=== PATIENT | female | born 1945 | race Caucasian/White ===

== ENCOUNTER → 2016-07-08 | Outpatient (CLI) | payer MEDICARE ==
[~2016-07-08] MED LIST: /AUGM875TA OR; CIPR500T19 OR; GLUC1000 OR; IMMODIUM AD PO; LEVA750T OR; No Historical Meds
--- NOTE | 2016-07-08 12:35 | REP ---
CHEST X-RAY, PA AND LATERAL: 07/08/2016. Comparison: 05/01/2014, 03/07/2011. Clinical history: Anemia, pneumonia. Findings: Two-view show the lungs well inflated. Some underlying interstitial change but no effusion, lateral pleural thickening or apical scarring. No dense consolidation. Some fibrotic changes are noted and some minor patchy fibroatelectatic change lower lung zones without dense consolidation, air bronchograms or mass. No pulmonary nodules. Heart is not enlarged. The aorta is mildly tortuous without aneurysm. Airway intact. There is no mediastinal widening. Bony thorax without focal lesion or compression deformities. No free air under the diaphragm. There are right upper quadrant clips from prior cholecystectomy. Impression: 1. Some underlying changes of COPD and fibrosis with bilateral basilar fibroatelectatic change that could be chronic or acute. No dense consolidation with air bronchograms, effusion or edema. Signed by Bernardino Tate MD 07/08/2016 08:25 P
[2016-07-08 13:24] LABS: MEAN CORPUSCULAR HEMOGLOBIN 29.5 pg (27.0-33.0); MEAN CORPUSCULAR HGB CONC 32.6 g/dl (32.0-36.5); MEAN CORPUSCULAR VOLUME 90.5 fl (80.0-96.0); RED CELL DISTRIBUTION WIDTH 12.9 % (11.5-14.5); WHITE BLOOD COUNT 14.3 K/mm3 (4.0-10.0)
[2016-07-08 14:16] LABS: ALBUMIN/GLOBULIN RATIO 1.25 (1.00-1.93); ALKALINE PHOSPHATASE 120 U/L (45-117); ALT/SGPT 23 U/L (12-78); ANION GAP 8 MEQ/L (8-16); AST/SGOT 14 U/L (15-37); BILIRUBIN,TOTAL 0.3 MG/DL (0.2-1.0); BLOOD UREA NITROGEN 15 MG/DL (7-18); CALCIUM LEVEL 9.7 MG/DL (8.8-10.2); CARBON DIOXIDE LEVEL 31 MEQ/L (21-32); CHLORIDE LEVEL 100 MEQ/L (98-107); CREATININE FOR GFR 0.74 MG/DL (0.55-1.02); GLOMERULAR FILTRATION RATE > 60.0 (>39); GLUCOSE, FASTING 154 MG/DL (83-110); POTASSIUM SERUM 3.9 MEQ/L (3.5-5.1); SODIUM LEVEL 139 MEQ/L (136-145); TOTAL PROTEIN 7.2 GM/DL (6.4-8.2)
== END ==
LOC: M LAB 11:37
PROVIDERS: ATTEND Family Medicine
DX: J18.9 Pneumonia, unspecified organism (principal); D64.9 Anemia, unspecified; J44.9 Chronic obstructive pulmonary disease, unspecified; Z79.899 Other long term (current) drug therapy

== ENCOUNTER → 2016-10-27 | Outpatient (CLI) | payer MEDICARE ==
--- NOTE | 2016-10-27 14:35 | REP ---
REASON: Wheezing. COMPARISON: Multiple, the latest 07/08/2016. There has been no significant change compared to the prior exam. Cardiomediastinal silhouette is unchanged. The heart is not enlarged. There is mild thoracic aorta tortuosity, and there is evidence of mild parenchymal lung fibrotic change, status quo. No acute patchy parenchymal opacities or pleural effusions have developed. There is no change in the osseous structures. IMPRESSION: No significant change from the prior exam. Stable-appearing chronic changes as described above. Signed by Magan Durbin DO 10/27/2016 03:20 P
== END ==
LOC: M RAD 13:03
PROVIDERS: ATTEND Family Medicine
DX: R06.2 Wheezing (principal)

== ENCOUNTER → 2016-12-12 | Outpatient (CLI) | payer MEDICARE ==
[2016-12-12 11:36] LABS: MEAN CORPUSCULAR HEMOGLOBIN 29.3 pg (27.0-33.0); MEAN CORPUSCULAR HGB CONC 32.8 g/dl (32.0-36.5); MEAN CORPUSCULAR VOLUME 89.4 fl (80.0-96.0); WHITE BLOOD COUNT 12.8 K/mm3 (4.0-10.0)
--- NOTE | 2016-12-12 11:37 | REP ---
Clinical: Hypertension . Comparison: 10/27/2016 . Technique: PA and lateral. Findings: The mediastinum and cardiac silhouette are normal. The lung greene demonstrate chronic changes without acute consolidation, effusion, or pneumothorax. The skeletal structures are intact and normal. Impression: 1. No acute cardiopulmonary process. If the patient becomes symptomatic, chest CT should be inserted for further investigation. Signed by Oscar Montenegro MD 12/12/2016 11:28 A
[2016-12-12 12:02] LABS: ALBUMIN 3.7 GM/DL (3.2-5.2); ALBUMIN/GLOBULIN RATIO 1.23 (1.00-1.93); ALKALINE PHOSPHATASE 105 U/L (45-117); ALT/SGPT 23 U/L (12-78); ANION GAP 8 MEQ/L (8-16); AST/SGOT 14 U/L (15-37); BILIRUBIN,TOTAL 0.4 MG/DL (0.2-1.0); BLOOD UREA NITROGEN 17 MG/DL (7-18); CALCIUM LEVEL 9.4 MG/DL (8.8-10.2); CARBON DIOXIDE LEVEL 31 MEQ/L (21-32); CHLORIDE LEVEL 101 MEQ/L (98-107); CHOLESTEROL LEVEL 221 MG/DL (<200); CREATININE FOR GFR 0.65 MG/DL (0.55-1.02); GLOMERULAR FILTRATION RATE > 60.0 (>39); GLUCOSE, FASTING 157 MG/DL (83-110); POTASSIUM SERUM 4.5 MEQ/L (3.5-5.1); SODIUM LEVEL 140 MEQ/L (136-145); TOTAL PROTEIN 6.7 GM/DL (6.4-8.2); TRIGLYCERIDES LEVEL 149 MG/DL (<150)
--- NOTE | 2016-12-12 13:55 | ECGEPIP ---
Stationary ECG Study [facility] Test Date: 2016-12-12 Pat Name: MOOKIE PARRISH Department: Room: - Gender: F Legal Secretary Receptionist: ISIDORO : 1945 Requested By: Oleg Guy Order Number: [id number] Reading MD: Stephan Salazar Measurements Intervals [place] Rate: 86 P: 70 OH: 130 QRS: -18 QRSD: 162 T: 120 QT: 389 QTc: 467 Interpretive Statements SINUS RHYTHM LEFT BUNDLE BRANCH BLOCK as previously noted in tracing done 05-01-14 Electronically Signed On 12-12-2016 13:54:41 EDT by Stephan Salazar
== END ==
LOC: M LAB 10:41
PROVIDERS: ATTEND Family Medicine
DX: J44.9 Chronic obstructive pulmonary disease, unspecified (principal); I10 Essential (primary) hypertension; E11.9 Type 2 diabetes mellitus without complications

== ENCOUNTER → 2018-06-04 | Outpatient (REF) | payer MEDICARE ==
[2018-06-04 21:53] LABS: APPEARANCE, URINE TURBID (CLEAR); BACTERIA, URINE AUTO 3+ (NEGATIVE); BILIRUBIN, URINE AUTO NEGATIVE (NEGATIVE); BLOOD, URINE BLOOD 3+ (NEGATIVE); COLOR, URINE YELLOW (YELLOW); GLUCOSE, URINE (UA) AUTO 3+ mg/dL (NEGATIVE); KETONE, URINE AUTO 1+ mg/dL (NEGATIVE); LEUKOCYTE ESTERASE, URINE AUTO 3+ (NEGATIVE); MUCUS, URINE SMALL (NEGATIVE); NITRITE, URINE AUTO POSITIVE (NEGATIVE); PROTEIN, URINE AUTO 2+ mg/dL (NEGATIVE); RBC, URINE AUTO TNTC /HPF (0-3); SPECIFIC GRAVITY URINE AUTO 1.025 (1.002-1.035); SQUAMOUS EPITHELIAL CELL UR AU 7 /HPF (0-6); UROBILINOGEN, URINE AUTO 0.2 mg/dL (0.0-2.0); WBC, URINE AUTO TNTC /HPF (0-3)
== END ==
LOC: M LAB REF 12:44
PROVIDERS: ATTEND Physician Assistant Medical
DX: N39.0 Urinary tract infection, site not specified (principal)

== ENCOUNTER → 2019-04-06 | Outpatient (REF) | payer MEDICARE | LOC: M LAB REF 12:10 | PROVIDERS: ATTEND Physician Assistant | DX: N39.0 Urinary tract infection, site not specified (principal) ==

== ENCOUNTER 2019-10-06 15:32 | Emergency (ER) | payer MEDICARE ==
[~2019-10-06] VITALS: Ht 167.6 cm; Wt 110.0 kg
[2019-10-06] MEDS ORDERED: METF500T13 PO (15:40)
[2019-10-06] MEDS ORDERED: SILV50CR TOP (15:40)
[2019-10-06] MEDS ORDERED: MINO100C4 PO (15:40)
[2019-10-06] MEDS ORDERED: SULF400T14 (15:40)
[2019-10-06] MEDS ORDERED: AMOX500C PO (15:40)
[2019-10-06] MEDS ORDERED: ASPI-1 PO (15:40)
[2019-10-06] MEDS ORDERED: ISOVUE-370 76% 100ML VIAL As Ordered ONE (17:26)
[2019-10-06 17:28] LABS: BASO # 0.1 10^3/uL (0.0-0.2); EOS # 0.3 10^3/uL (0.0-0.5); HEMOGLOBIN 16.2 g/dl (12.0-15.5); LYMPH # 2.5 10^3/uL (1.5-5.0); LYMPH % 19.2 % (24.0-44.0); MEAN CORPUSCULAR HEMOGLOBIN 28.9 pg (27.0-33.0); MEAN CORPUSCULAR HGB CONC 33.1 g/dl (32.0-36.5); MEAN CORPUSCULAR VOLUME 87.5 fl (80.0-96.0); MONO # 0.9 10^3/uL (0.0-0.8); NEUTROPHILS # 9.3 10^3/uL (1.5-8.5); NEUTROPHILS % 70.3 % (36.0-66.0); PLATELET COUNT, AUTOMATED 239 10^3/uL (150-450); WHITE BLOOD COUNT 13.2 10^3/uL (4.0-10.0)
--- NOTE | 2019-10-06 18:09 | REPVR ---
PROCEDURE INFORMATION: Exam: CT Right Lower Extremity Without Contrast, Ankle Exam date and time: 10/06/2019 5:27 PM Age: 73 years old Clinical indication: Cellulitis; Ankle; Bilateral; Additional info: Bilateral cellulitis with bulla TECHNIQUE: Imaging protocol: CT of the Right lower extremity without contrast was performed. Exam focused on the ankle. Radiation optimization: All CT scans at this facility use at least one of these dose optimization techniques: automated exposure control; mA and/or kV adjustment per patient size (includes targeted exams where dose is matched to clinical indication); or iterative reconstruction. Other contrast: intravenous contrast; COMPARISON: CR Ankle, complete 11/24/2012 8:21 PM FINDINGS: Bones/joints: No acute osseous lesions or fractures. No osteolytic or osteoblastic lesions. No dislocation. Soft tissues: Nynj-vj-qkqprprx nonspecific subcutaneous edema along the calcaneal soft tissues. IMPRESSION: 1. No acute osseous lesions. 2. Aoat-ls-ofluvwqt nonspecific subcutaneous edema along the calcaneal soft tissues. PROCEDURE INFORMATION: Exam: CT Left Lower Extremity Without Contrast, Ankle Exam date and time: 10/06/2019 5:27 PM Age: 73 years old Clinical indication: Cellulitis; Ankle; Bilateral; Additional info: Bilateral cellulitis with bulla TECHNIQUE: Imaging protocol: CT of the Left lower extremity without contrast was performed. Exam focused on the ankle. Radiation optimization: All CT scans at this facility use at least one of these dose optimization techniques: automated exposure control; mA and/or kV adjustment per patient size (includes targeted exams where dose is matched to clinical indication); or iterative reconstruction. Other contrast: intravenous contrast; COMPARISON: CR Ankle, complete 11/24/2012 8:21 PM FINDINGS: Bones/joints: Large dermal based cystic mass along the lateral and posterior aspects of the left ankle, possibly large dermal blister. No acute osseous lesions or fractures. No osteolytic or osteoblastic lesions. No dislocation. Soft tissues: Dqkl-ba-yjxynynh subcutaneous edema along the calcaneal soft tissues. IMPRESSION: 1. Large dermal based cystic mass along the lateral and posterior aspects of the left ankle, possibly large dermal blister. Correlate with physical examination. 2. No acute osseous lesions. 3. Zxwv-yn-vekxbmtb subcutaneous edema along the calcaneal soft tissues. Electronically signed by: Eleno Delgadillo On 10/06/2019 18:08:46 PM
[2019-10-06 18:21] LABS: ERYTHROCYTE SEDIMENTATION RATE 34 mm/hr (0-30)
[2019-10-06] MEDS ORDERED: MAALOX 30 ML SUSP *UDC PO PRN (19:45)
[2019-10-06] MEDS ORDERED: ACETAMINOPHEN TAB 650MG DOSE (2X325MG) PO PRN (19:45)
[2019-10-06] MEDS ORDERED: MOM 30ML SUSPENSION UDC PO PRN (19:45)
[2019-10-06] MEDS ORDERED: DOXY100C37 PO (19:58)
[2019-10-06] MEDS ORDERED: DOXYCYCLINE HYCLATE 100MG TABLET PO ONE (20:00)
[2019-10-06] MEDS ORDERED: NORC1TAB7 PO (20:00)
[2019-10-06] MEDS ORDERED: NORCO 5/325MG TABLET (BULK FOR ED) PO SCH (20:15)
[2019-10-06] MEDS ORDERED: NORCO, ANEXSIA 5/325MG TABLET (HYDROcodone/ACETAMINOPHEN) PO ONE (20:15)
[2019-10-06 20:16] VITALS: BP 112/64
[2019-10-07] MEDS ORDERED: ENOXAPARIN 40MG/0.4ML SYRINGE (J1650 PER 10MG) SC SCH (09:00)
--- NOTE | 2019-10-07 13:23 | ED PDOC ---
Post-Departure Follow-Up ct ankle report faxed to dr nguyễn and stevie rouse for fu Ester Nicole MD Oct 07, 2019 13:23
== END 2019-10-06 20:44 | disposition home or self-care (01) ==
LOC: M ED 15:32 → UNDOADMIN 19:36 → M ED INP 19:36 → M ED 20:44
DX: L13.9 Bullous disorder, unspecified (principal); L03.115 Cellulitis of right lower limb; E11.9 Type 2 diabetes mellitus without complications; R51 Headache; K21.9 Gastro-esophageal reflux disease without esophagitis; Z87.440 Personal history of urinary (tract) infections; Z87.01 Personal history of pneumonia (recurrent); Z79.82 Long term (current) use of aspirin; Z79.84 Long term (current) use of oral hypoglycemic drugs; Z79.899 Other long term (current) drug therapy; Z91.89 Other specified personal risk factors, not elsewhere classified; Z88.8 Allergy status to other drugs, medicaments and biological substances
CPT/HCPCS: 73701; 80047; 83605; 85025; 85652; 86140; 87040; 99283; Q9967

== ENCOUNTER → 2019-10-07 | Outpatient (REF) | payer MEDICARE ==
[~2019-10-07] MED LIST changes: +AMOX500C PO; +ASPI-1 PO; +DOXY100C37 PO; +METF500T13 PO; +MINO100C4 PO; +NORC1TAB7 PO; +SILV50CR TOP; +SULF400T14
== END ==
LOC: M LAB REF 10:56
PROVIDERS: ATTEND Physician Assistant
DX: R21 Rash and other nonspecific skin eruption (principal)

== ENCOUNTER 2019-12-16 14:51 | Inpatient (IN) | payer MEDICARE, OTHER ==
[~2019-12-16] VITALS: Ht 167.6 cm; Wt 109.2 kg
[2019-12-16] MEDS ORDERED: MORPHINE 2 MG/ML 1ML VIAL (J2270) IV PRN (15:30)
[2019-12-16] MEDS ORDERED: ONDANSETRON 4MG/2ML VIAL IV ONE (15:30)
[2019-12-16] MEDS ORDERED: ISOVUE-370 76% 100ML VIAL As Ordered ONE (15:47)
[2019-12-16 15:53] LABS: HEMATOCRIT 49.5 % (36.0-47.0); HEMOGLOBIN 16.7 g/dl (12.0-15.5); MEAN CORPUSCULAR HEMOGLOBIN 29.5 pg (27.0-33.0); MEAN CORPUSCULAR HGB CONC 33.7 g/dl (32.0-36.5); MEAN CORPUSCULAR VOLUME 87.5 fl (80.0-96.0); PLATELET COUNT, AUTOMATED 259 10^3/uL (150-450); RED BLOOD COUNT 5.66 10^6/uL (4.00-5.40); WHITE BLOOD COUNT 23.1 10^3/uL (4.0-10.0)
[2019-12-16 16:17] LABS: ALBUMIN 3.8 GM/DL (3.2-5.2); BILIRUBIN,DIRECT 0.2 MG/DL (0.0-0.2); BILIRUBIN,TOTAL 0.7 MG/DL (0.2-1.0); TOTAL PROTEIN 7.3 GM/DL (6.4-8.2)
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
[2019-12-16] MEDS ORDERED: OMEP10CASR PO (16:25)
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
[2019-12-16] MEDS ORDERED: LOPE2TAB12 PO (18:12)
[2019-12-16] MEDS ORDERED: CENT1TAB PO (18:12)
[2019-12-16] MEDS ORDERED: VITA500T41 PO (18:12)
[2019-12-16] MEDS ORDERED: OMEP1CAP73 PO (18:12)
[2019-12-16] MEDS ORDERED: DOXY-259 PO (18:12)
[2019-12-16] MEDS ORDERED: ONDANSETRON 4MG/2ML VIAL IV PRN (18:15)
[2019-12-16] MEDS ORDERED: KETOROLAC 30 MG/ML 1ML VIAL IV PRN (18:15)
[2019-12-16 21:40] VITALS: BP 138/85
[2019-12-16] MEDS: SENOKOT S TAB PO SCH (21:40)
[2019-12-17 06:00] VITALS: BP 124/75
[2019-12-17 07:02] LABS: BASO # 0.1 10^3/uL (0.0-0.2); BASO % 0.9 % (0.0-1.0); EOS % 0.1 % (0.0-3.0); HEMATOCRIT 44.3 % (36.0-47.0); HEMOGLOBIN 14.8 g/dl (12.0-15.5); LYMPH % 19.9 % (24.0-44.0); MEAN CORPUSCULAR HEMOGLOBIN 29.3 pg (27.0-33.0); MEAN CORPUSCULAR HGB CONC 33.4 g/dl (32.0-36.5); MEAN CORPUSCULAR VOLUME 87.7 fl (80.0-96.0); MONO # 1.1 10^3/uL (0.0-0.8); MONO % 7.4 % (0.0-5.0); NEUTROPHILS # 10.6 10^3/uL (1.5-8.5); NEUTROPHILS % 70.9 % (36.0-66.0); PLATELET COUNT, AUTOMATED 209 10^3/uL (150-450); RED BLOOD COUNT 5.05 10^6/uL (4.00-5.40); WHITE BLOOD COUNT 14.9 10^3/uL (4.0-10.0)
[2019-12-17 07:19] LABS: CALCIUM LEVEL 9.2 MG/DL (8.8-10.2); CREATININE FOR GFR 1.01 MG/DL (0.55-1.30)
[2019-12-17] MEDS: ENOXAPARIN 40MG/0.4ML SYRINGE (J1650 PER 10MG) SC SCH (08:40)
[2019-12-17] MEDS: DOXYCYCLINE HYCLATE 100MG TABLET PO SCH ×2 (08:40→20:20)
[2019-12-17] MEDS: SENOKOT S TAB PO SCH ×2 (08:40→20:20)
[2019-12-17] MEDS: metFORMIN (GLUCOPHAGE) 500 MG TAB PO SCH ×3 (08:41→18:05)
[2019-12-17] MEDS: ACETAMINOPHEN TAB 650MG DOSE (2X325MG) PO PRN ×2 (08:48→13:27)
[2019-12-17] MEDS ORDERED: HYDR-3715 PO (10:26)
[2019-12-17 14:00] VITALS: BP 120/70
[2019-12-17] MEDS: OMEPRAZOLE 20 MG CAP PO SCH (20:20)
[2019-12-17] MEDS: NORCO, ANEXSIA 5/325MG TABLET (HYDROcodone/ACETAMINOPHEN) PO PRN (20:21)
[2019-12-17 20:24] VITALS: BP 149/90
[2019-12-18] VITALS (14 sets, daily range): BP systolic 123–160; BP diastolic 58–80
[2019-12-18] MEDS: NORCO, ANEXSIA 5/325MG TABLET (HYDROcodone/ACETAMINOPHEN) PO PRN (02:22)
[2019-12-18] MEDS: ACETAMINOPHEN TAB 650MG DOSE (2X325MG) PO PRN (06:17)
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
[2019-12-18] MEDS: metFORMIN (GLUCOPHAGE) 500 MG TAB PO SCH ×3 (08:47→17:34)
[2019-12-18] MEDS: DOXYCYCLINE HYCLATE 100MG TABLET PO SCH ×2 (08:47→21:01)
--- NOTE | 2019-12-18 08:47 | REPVR ---
PROCEDURE INFORMATION: Exam: XR Chest, 2 Views Exam date and time: 12/18/2019 7:34 AM Age: 74 years old Clinical indication: Sternal or substernal pain; Additional info: Pneumothorax TECHNIQUE: Imaging protocol: XR of the chest Views: 2 views. COMPARISON: CT Chest with contrast 12/16/2019 4:01 PM FINDINGS: Lungs: Mild atelectasis within the partially collapsed right lung. Pleural space: Moderate right pneumothorax has slightly increased in size. Heart/Mediastinum: Cardiac size is normal and mediastinal contour stable. Bones/joints: Bones are stable. IMPRESSION: Moderate right pneumothorax has slightly increased in size. There is mild atelectasis within the partially collapsed right lung. Electronically signed by: Oscar Frazier On 12/18/2019 08:46:39 AM
[2019-12-18] MEDS: SENOKOT S TAB PO SCH ×2 (08:48→21:00)
[2019-12-18] MEDS: ENOXAPARIN 40MG/0.4ML SYRINGE (J1650 PER 10MG) SC SCH (08:48)
[2019-12-18] MEDS: MOM 30ML SUSPENSION UDC PO SCH (09:00)
[2019-12-18] MEDS ORDERED: HumaLOG INSULIN (NovoLOG) PER UNIT SC SCH ×2 (12:00→21:00)
[2019-12-18] MEDS ORDERED: DEXTROSE 50% 50 ML SYRINGE IV PRN (12:15)
[2019-12-18] MEDS ORDERED: GLUCAGON INJ 1MG VIAL SC PRN (12:15)
[2019-12-18] MEDS ORDERED: GLUCOSE 4GM CHEW TABLET PO PRN (12:15)
[2019-12-18] MEDS ORDERED: flumazeniL 0.5 MG/5 ML VIAL As Ordered ONE (12:59)
[2019-12-18] MEDS ORDERED: MIDAZOLAM INJ 2MG/2ML VIAL (J2250 PER 1MG) As Ordered ONE ×2 (12:59→13:00)
[2019-12-18] MEDS ORDERED: LIDOCAINE 1% MDV 20ML VIAL As Ordered ONE (13:00)
[2019-12-18] MEDS ORDERED: PERCOCET 5MG/325MG TAB PO PRN (14:00)
[2019-12-18] MEDS ORDERED: BISACODYL 10 MG SUPP PR PRN (14:00)
[2019-12-18] MEDS ORDERED: LEVALBUTEROL 1.25 MG/0.5 ML CONCENTRATE NEB NEB PRN (14:00)
[2019-12-18] MEDS ORDERED: KCL 20MEQ IN D5/NS 1000ML 1,000 ML IV SCH (14:15)
--- NOTE | 2019-12-18 14:25 | REPVR ---
PROCEDURE INFORMATION: Exam: XR Chest, 1 View Exam date and time: 12/18/2019 1:49 PM Age: 74 years old Clinical indication: Chest tube insertion TECHNIQUE: Imaging protocol: XR of the chest Views: 1 view. COMPARISON: CR Chest, 2 view PA, Lat 12/18/2019 8:28 AM FINDINGS: Limitations: The patient is rotated. Tubes, catheters and devices: Oxygen tubing and ECG leads/contacts overlie and partially obscure the anatomy. Lungs: Interval placement of a right-sided chest tube with its tip projecting at the right upper lung. Right lung aeration is improved, however moderate right infrahilar and basilar airspace opacities persist. New mild left basilar ill-defined airspace opacities. Pleural space: Significantly improved right pneumothorax. Minimal right pneumothorax persists. No evident left pneumothorax. No evident pleural effusion. Heart/Mediastinum: Heart size is within normal limits. Vasculature: Tortuous thoracic aorta. Bones/joints: No evident acute osseous abnormality. IMPRESSION: 1. Interval placement of a right-sided chest tube with its tip projecting at the right upper lung. Significantly improved right pneumothorax. Minimal right pneumothorax persists. 2. Bilateral lower lung airspace opacities as described, presumably atelectasis. Electronically signed by: Tom Miller On 12/18/2019 14:25:42 PM
[2019-12-18] MEDS: LEVALBUTEROL 1.25 MG/0.5 ML CONCENTRATE NEB NEB SCH ×2 (15:06→19:58)
[2019-12-18] MEDS: KETOROLAC 30 MG/ML 1ML VIAL IV SCH ×2 (15:09→21:00)
[2019-12-18] MEDS ORDERED: LIDOCAINE 1% MDV 20ML VIAL SC ONE (17:00)
[2019-12-18] MEDS ORDERED: MIDAZOLAM INJ 2MG/2ML VIAL (J2250 PER 1MG) IV ONE (17:00)
[2019-12-18] MEDS: OMEPRAZOLE 20 MG CAP PO SCH (21:00)
[2019-12-18] MEDS: DOCUSATE SODIUM 100 MG CAP PO SCH ×2 (21:00→21:01)
[2019-12-19] VITALS (22 sets, daily range): BP systolic 114–136; BP diastolic 56–78; O2SAT 87–97
[2019-12-19] MEDS: LEVALBUTEROL 1.25 MG/0.5 ML CONCENTRATE NEB NEB SCH ×4 (01:37→19:54)
[2019-12-19] MEDS: KETOROLAC 30 MG/ML 1ML VIAL IV SCH ×2 (03:06→09:02)
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
[2019-12-19] MEDS: SENOKOT S TAB PO SCH ×2 (09:00→20:24)
[2019-12-19] MEDS: DOCUSATE SODIUM 100 MG CAP PO SCH ×2 (09:00→20:24)
[2019-12-19] MEDS: MOM 30ML SUSPENSION UDC PO SCH (09:00)
[2019-12-19] MEDS: NORCO, ANEXSIA 5/325MG TABLET (HYDROcodone/ACETAMINOPHEN) PO PRN ×2 (09:01→18:19)
[2019-12-19] MEDS: ENOXAPARIN 40MG/0.4ML SYRINGE (J1650 PER 10MG) SC SCH (09:01)
[2019-12-19] MEDS: metFORMIN (GLUCOPHAGE) 500 MG TAB PO SCH ×3 (09:02→18:18)
[2019-12-19] MEDS: DOXYCYCLINE HYCLATE 100MG TABLET PO SCH ×2 (09:02→20:33)
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
[2019-12-19 12:44] LABS: CALCIUM LEVEL 9.1 MG/DL (8.8-10.2); CREATININE FOR GFR 1.16 MG/DL (0.55-1.30); GLOMERULAR FILTRATION RATE 48.6 (>39); POTASSIUM SERUM 4.3 MEQ/L (3.5-5.1)
--- NOTE | 2019-12-19 17:40 | REPVR ---
PROCEDURE INFORMATION: Exam: XR Chest, 2 Views Exam date and time: 12/19/2019 8:40 AM Age: 74 years old Clinical indication: Condition or disease; Lung condition and disease; Pneumothorax; Additional info: Pneumthx TECHNIQUE: Imaging protocol: XR of the chest Views: 2 views. COMPARISON: CR PORTABLE CHEST X-RAY 12/18/2019 1:52 PM FINDINGS: Lungs: Well inflated lungs consistent with COPD. Chest tube demonstrated in the medial aspect of the right upper lung zone. Pleural space: Blunting of the right costophrenic angle may represent chronic change versus a small pleural effusion. Heart/Mediastinum: Unremarkable. No cardiomegaly. Bones/joints: Unremarkable. Soft tissues: Subcutaneous emphysema in the right lateral chest wall likely postprocedural. IMPRESSION: 1. Well inflated lungs consistent with COPD. 2. Blunting of the right costophrenic angle may represent chronic change versus a small pleural effusion. Electronically signed by: eMrrill Osorio On 12/19/2019 17:40:23 PM
[2019-12-19] MEDS: PERCOCET 5MG/325MG TAB PO PRN (19:34)
[2019-12-19] MEDS: OMEPRAZOLE 20 MG CAP PO SCH (20:33)
[2019-12-19] MEDS ORDERED: MORPHINE 4 MG/ML 1ML VIAL/SYRINGE (J2270) IV ONE (21:00)
[2019-12-20] VITALS (22 sets, daily range): BP systolic 133–147; BP diastolic 61–81; O2SAT 86–96
[2019-12-20] MEDS: LEVALBUTEROL 1.25 MG/0.5 ML CONCENTRATE NEB NEB SCH ×4 (01:20→20:16)
[2019-12-20 06:13] LABS: HEMATOCRIT 40.4 % (36.0-47.0); HEMOGLOBIN 13.4 g/dl (12.0-15.5); MEAN CORPUSCULAR HEMOGLOBIN 29.2 pg (27.0-33.0); MEAN CORPUSCULAR HGB CONC 33.2 g/dl (32.0-36.5); PLATELET COUNT, AUTOMATED 223 10^3/uL (150-450); RED BLOOD COUNT 4.59 10^6/uL (4.00-5.40); WHITE BLOOD COUNT 13.2 10^3/uL (4.0-10.0)
[2019-12-20 06:32] LABS: BLOOD UREA NITROGEN 20 MG/DL (7-18); CARBON DIOXIDE LEVEL 30 MEQ/L (21-32); CHLORIDE LEVEL 99 MEQ/L (98-107); CREATININE FOR GFR 0.89 MG/DL (0.55-1.30); GLOMERULAR FILTRATION RATE > 60.0 (>39); GLUCOSE, FASTING 215 MG/DL (70-100); SODIUM LEVEL 136 MEQ/L (136-145)
[2019-12-20] MEDS: MOM 30ML SUSPENSION UDC PO SCH (09:00)
[2019-12-20] MEDS: SENOKOT S TAB PO SCH ×3 (09:00→21:00)
[2019-12-20] MEDS: DOCUSATE SODIUM 100 MG CAP PO SCH ×3 (09:00→21:00)
[2019-12-20] MEDS: PERCOCET 5MG/325MG TAB PO PRN ×2 (09:52→20:49)
[2019-12-20] MEDS: DOXYCYCLINE HYCLATE 100MG TABLET PO SCH ×2 (09:52→20:48)
[2019-12-20] MEDS: metFORMIN (GLUCOPHAGE) 500 MG TAB PO SCH ×3 (09:53→17:25)
[2019-12-20] MEDS: ENOXAPARIN 40MG/0.4ML SYRINGE (J1650 PER 10MG) SC SCH (09:54)
--- NOTE | 2019-12-20 16:26 | ECGEPIP ---
[facility] Test Date: 2019-12-18 Pat Name: MOOKIE PARRISH Department: Room: [place] [address] Gender: Female [employer] Instructor: SINA : 1945 Requested By: Stephan Cardenas Order Number: [id number] Reading MD: Stephan Salazar Measurements Intervals Rubicon Rate: 86 P: 27 RI: 128 QRS: -26 QRSD: 152 T: 123 QT: 392 QTc: 469 Interpretive Statements SINUS RHYTHM LEFT BUNDLE BRANCH BLOCK Similar to tracing done 12-12-16 Electronically Signed on 12-20-2019 16:26:09 EDT by Stephan Salazar
[2019-12-20] MEDS: OMEPRAZOLE 20 MG CAP PO SCH (20:48)
[2019-12-21] VITALS (21 sets, daily range): BP systolic 128–144; BP diastolic 60–72; O2SAT 88–96
[2019-12-21] MEDS: LEVALBUTEROL 1.25 MG/0.5 ML CONCENTRATE NEB NEB SCH ×4 (01:34→20:05)
[2019-12-21 06:24] LABS: HEMATOCRIT 40.2 % (36.0-47.0); HEMOGLOBIN 13.1 g/dl (12.0-15.5); MEAN CORPUSCULAR HEMOGLOBIN 29.1 pg (27.0-33.0); MEAN CORPUSCULAR HGB CONC 32.6 g/dl (32.0-36.5); MEAN CORPUSCULAR VOLUME 89.3 fl (80.0-96.0); PLATELET COUNT, AUTOMATED 212 10^3/uL (150-450)
[2019-12-21 06:39] LABS: BLOOD UREA NITROGEN 16 MG/DL (7-18); CALCIUM LEVEL 8.9 MG/DL (8.8-10.2); CARBON DIOXIDE LEVEL 31 MEQ/L (21-32); CHLORIDE LEVEL 100 MEQ/L (98-107); CREATININE FOR GFR 0.81 MG/DL (0.55-1.30); GLOMERULAR FILTRATION RATE > 60.0 (>39); GLUCOSE, FASTING 211 MG/DL (70-100); POTASSIUM SERUM 3.8 MEQ/L (3.5-5.1); SODIUM LEVEL 137 MEQ/L (136-145)
[2019-12-21] MEDS: metFORMIN (GLUCOPHAGE) 500 MG TAB PO SCH ×3 (08:12→18:51)
[2019-12-21] MEDS: DOCUSATE SODIUM 100 MG CAP PO SCH ×2 (08:12→21:00)
[2019-12-21] MEDS: SENOKOT S TAB PO SCH ×2 (08:12→21:00)
[2019-12-21] MEDS: MOM 30ML SUSPENSION UDC PO SCH (08:12)
[2019-12-21] MEDS: PERCOCET 5MG/325MG TAB PO PRN ×2 (08:13→21:48)
[2019-12-21] MEDS: DOXYCYCLINE HYCLATE 100MG TABLET PO SCH ×2 (08:13→21:48)
[2019-12-21] MEDS: ENOXAPARIN 40MG/0.4ML SYRINGE (J1650 PER 10MG) SC SCH (08:14)
--- NOTE | 2019-12-21 10:25 | IPNPDOC ---
Text Note Date of Service The patient was seen on 12/21/19. NOTE Feels better after chest tube has been removed, Pain level 2 but pain more on the right breast area. Nurse reports O2 drops at night when she sleeps but ok in the morning, reports burning with urinatiion Impression and plan: multiple rib fractures pneumothorax s/p chest tube placement resolved UTI - diflucan PT eval potentially home in the morning if cleared by PT VS,Lachelle, I+O VS, Lachelle I+O Laboratory Tests 12/21/19 05:56 Vital Signs Date Time Temp Pulse Resp B/P (MAP) Pulse Ox O2 Delivery O2 Flow Rate FiO2 12/21/19 08:13 18 12/21/19 07:58 96.7 79 128/60 (82) 96 Room Air 12/21/19 05:00 2.0 I&O- Last 24 Hours up to 6 AM 12/21/19 06:00 Intake Total 600 ml Output Total 1150 ml Balance -550 ml FRANKIE WILSON MD Dec 21, 2019 10:25
[2019-12-21] MEDS: FLUCONAZOLE 50MG TABLET PO SCH (12:58)
[2019-12-21] MEDS: OMEPRAZOLE 20 MG CAP PO SCH (21:48)
[2019-12-22] VITALS (13 sets, daily range): BP systolic 130–143; BP diastolic 64–80; O2SAT 89–95
[2019-12-22] MEDS: LEVALBUTEROL 1.25 MG/0.5 ML CONCENTRATE NEB NEB SCH ×3 (02:00→13:30)
[2019-12-22 04:54] LABS: HEMOGLOBIN 12.6 g/dl (12.0-15.5); MEAN CORPUSCULAR HEMOGLOBIN 29.5 pg (27.0-33.0); MEAN CORPUSCULAR HGB CONC 33.2 g/dl (32.0-36.5); PLATELET COUNT, AUTOMATED 218 10^3/uL (150-450); RED BLOOD COUNT 4.27 10^6/uL (4.00-5.40); WHITE BLOOD COUNT 10.7 10^3/uL (4.0-10.0)
[2019-12-22 05:13] LABS: BLOOD UREA NITROGEN 15 MG/DL (7-18); CALCIUM LEVEL 8.9 MG/DL (8.8-10.2); CARBON DIOXIDE LEVEL 30 MEQ/L (21-32); CHLORIDE LEVEL 100 MEQ/L (98-107); CREATININE FOR GFR 0.85 MG/DL (0.55-1.30); GLOMERULAR FILTRATION RATE > 60.0 (>39); GLUCOSE, FASTING 199 MG/DL (70-100); POTASSIUM SERUM 4.1 MEQ/L (3.5-5.1); SODIUM LEVEL 138 MEQ/L (136-145)
[2019-12-22] MEDS: DOCUSATE SODIUM 100 MG CAP PO SCH (09:00)
[2019-12-22] MEDS: SENOKOT S TAB PO SCH (09:00)
[2019-12-22] MEDS: MOM 30ML SUSPENSION UDC PO SCH (09:00)
[2019-12-22] MEDS: FLUCONAZOLE 50MG TABLET PO SCH (09:33)
[2019-12-22] MEDS: ENOXAPARIN 40MG/0.4ML SYRINGE (J1650 PER 10MG) SC SCH (09:33)
[2019-12-22] MEDS: DOXYCYCLINE HYCLATE 100MG TABLET PO SCH (09:33)
[2019-12-22] MEDS: metFORMIN (GLUCOPHAGE) 500 MG TAB PO SCH ×3 (09:33→18:00)
--- NOTE | 2019-12-22 10:06 | REP ---
CHEST X-RAY: 12/17/19 CLINICAL: Pneumothorax. COMPARISON: CT 12/16/19. TECHNIQUE: PA and lateral. FINDINGS: A very small right anterior pneumothorax is again suggested. Mediastinum and cardiac silhouette are stable. Lung greene are otherwise clear and without consolidation/contusion or effusion. Skeletal structures appear intact and without evidence for trauma/injury. IMPRESSION: Small/moderate anterobasal pneumothorax of about 15% similar to finding on recent chest CT. MTDD
--- NOTE | 2019-12-22 10:09 | RO ---
DATE OF OPERATION: 12/18/2019 PREOPERATIVE DIAGNOSIS: Right pneumothorax. POSTOPERATIVE DIAGNOSIS: Right pneumothorax. SURGEON: Dr. Raul Gama. CIRCULATION CLERK: PROCEDURE: Insertion of right anterior-superior chest tube with moderate sedation. ANESTHESIA: DESCRIPTION OF PROCEDURE: Using moderate sedated achieved with 3 mg of Versed, patient was prepped and draped in the usual sterile fashion. The 2nd rib was identified, and skin, subcutaneous tissue, and pleura were infiltrated with 1% lidocaine. Incision was made, and a tunnel was created in the chest without difficulty. A #20 chest tube was placed without difficulty. It was secured to the chest wall with #2 TevDek sutures and connected to the Pleur-evac. The patient tolerated the procedure well, and a chest x-ray is pending. HEALTH SYSTEMRolando
--- NOTE | 2019-12-22 10:10 | IPN ---
DATE: 12/19/2019 Ms. Barbour says she is feeling better, and the pain at the chest tube site is well controlled. She has been up and around walking today. There is no air leak. She has drained nothing from her chest tube. Her chest x-ray shows the lung fully expanded to the chest wall. Her vital signs show a maximum temperature of 97.8 with a heart rate that ranges between 86-87 in a sinus rhythm, respiratory rate of 10-20 without the use of accessory muscles, who is 95%-97% saturated, now on 2 liters nasal cannula, and whose blood pressure is ranging between 136/66-114/56. Her intake and output for the past 24 hours has been recorded as 640 in and 454 out, for a positivity of 1100 mL. Chest tube has put out 4 mL, and there is no air leak. Weight today is 110.4 kg compared to 109.9 kg on December 15. PHYSICAL EXAMINATION: Her lungs show normal vesicular sounds, which are equal on either side. Percussion notes are full to the diaphragm. Sternum is slightly tender but certainly stable. Abdomen is soft, nontender. Bowel sounds are positive. There is no hepatomegaly. No costovertebral angle (CVA) tenderness. Cardiac exam is without murmurs, clicks, gallops, or rubs. I cannot feel her point of maximal impulse (PMI). S1 and S2 are normal. Extremities show no pretibial edema, no calf tenderness, no differential swelling of the upper extremities. Skin is warm, dry, and perfused without cyanosis or mottling, including that of the nailbeds and knees. Neck is supple. There is no jugular venous distention. No subcutaneous emphysema. Trachea is midline. Mouth shows the mucous membranes to be pink and moist. Lips and commissures show no lesions or thrush. Eyes show her pupils to be equal and reactive. Extraocular muscles intact. Sclerae anicteric. Neurologic shows II-XII intact. Normal gross motor, gross sensation intact. Gait is not tested. Psychiatric shows her to awake, alert, and oriented times three with appropriate mood and affect and conversational. There is no white count on her today. Her electrolytes show sodium 132 with a BUN and creatinine of 22 and 1.16 and a glucose of 312 with a calcium 9.1. Her creatinine is up, as is her BUN, and I think that she is probably intervascularly dry. Nonetheless, I will discontinue her Toradol. Her chest x-ray shows her lung fully expanded to the chest wall. It is not the prettiest chest tube, but it is functional. The costophrenic angles are sharp. There is some subcutaneous emphysema on the lateral chest wall. IMPRESSION: 1. Traumatic pneumothorax. 2. Diabetes. 3. Nondisplaced sternal fracture, mid sternum. 4. Probable urinary tract infection. 5. Gastroesophageal reflux disease. 6. Tobacco abuse. PLAN AND DISCUSSION: I will take her chest tube off suction today. Her urine culture is pending. I do not see a urinalysis on her. She is doing well with her inceptive spirometry and positive expiratory pressure (PEP) therapy with her lung fully expanded to the chest wall. She is also doing well with ambulation. I will probably take the chest tube out tomorrow. I will discontinue her Toradol. MTDD
--- NOTE | 2019-12-22 10:12 | IPN ---
DATE: 12/20/2019 CHIEF COMPLAINT: Ms. Barbour had increasing pain at the chest tube insertion site and in her back yesterday. I gave her an extra 4 mg of Morphine which in the main resolved it. I suspect it is because the chest tube is posterior. Today she is doing well. There is no air leak and she has drained minimally. Her vital signs show a maximum temperature of 97.4 with a heart rate that ranges between 78-89 in a sinus rhythm, respiratory rate of 17-20 without the use of accessory muscles, who is 93%-95% saturated on 2 liters nasal cannula, and whose blood pressure is ranging between 147/81 to 140/68. Her intake and output for the past 24 hours has been recorded as 990 in and 930 out for near equality. She has put 5 mL out the chest tube. She weighs 113.2 kg today compared to 110.4 kg yesterday. PHYSICAL EXAMINATION: Her lungs show equal breath sounds on either side without wheezes, rhonchi, or rales. Percussion was full to the diaphragm. There is no subcutaneous emphysema. Cardiac exam is without murmurs, clicks, gallops, or rubs. I cannot feel her point of maximal impulse (PMI). S1 and S2 are normal. Abdomen is soft and nontender. Bowel sounds are positive. There is no hepatomegaly, no costovertebral angle tenderness (CVA) tenderness. Extremities show no pretibial edema, no calf tenderness, no differential swelling of the upper extremities. Skin is warm, dry, and perfused without cyanosis or mottling including that of the nailbeds and knees. Neck is supple. There is no jugular venous distention. No subcutaneous emphysema. Trachea is midline. Mouth shows the mucous membranes to be pink and moist. Lips and commissures show no lesions or thrush. Eyes show her pupils to be equal and reactive. Extraocular movements intact. Sclerae are nonicteric. Neurologic shows II-XII intact. Normal gross motor, gross sensation intact. Gait is not tested. Psychiatric shows her to be awake, alert, and oriented times three with appropriate mood and affect and conversational. Her chest x-ray today shows her lung fully expanded to the chest wall with sharp costophrenic angles. Chest tube is posterior on the lateral film. I see no infiltrates. Her white count today is 13.2 with a hemoglobin and hematocrit of 13.4 and 40.4 respectively. The platelet count is 223. Chemistries show normal electrolytes with a BUN and creatinine of 20 and 0.89, a glucose of 215 and a calcium of 9.0. IMPRESSION: 1. Traumatic pneumothorax right side. 2. Diabetes. 3. Probable urinary tract infection. 4. Gastroesophageal reflux disease. 5. Tobacco abuse. 6. Nondisplaced sternal fracture, mid sternum. PLAN AND DISCUSSION: I will remove her chest tube today. If all goes well she can be discharged from my perspective tomorrow. She is growing yeast-like organisms of 40,000 CFU/mL. [facility]
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
[2019-12-22] MEDS: NORCO, ANEXSIA 5/325MG TABLET (HYDROcodone/ACETAMINOPHEN) PO PRN (12:22)
[2019-12-22] MEDS: PERCOCET 5MG/325MG TAB PO PRN (17:08)
--- NOTE | 2020-01-01 08:13 | REP ---
CHEST X-RAY: 2-VIEWS HISTORY: Pneumothorax. COMPARISON: 11/18/2019 at 0833 am. FINDINGS: The right apical chest tube is again noted in place in a slightly different position superimposed over the nitin on the frontal view. There is a small quantity of extrathoracic gas along the right chest wall. There is no discernable pneumothorax. There is minimal plate-like atelectasis in the right base. Left lung remains clear. MTDD
--- NOTE | 2020-01-01 08:14 | REP ---
CHEST X-RAY: 2-VIEWS HISTORY: Pneumothorax. COMPARISON: Chest x-ray 12/20/2019. FINDINGS: In the interval since yesterdays radiograph, the right chest tube has been removed. There is no visible pneumothorax. The pleural angles are sharp. Minimal layer plate-like atelectasis is seen in the right mid lung zone. Lung greene are otherwise clear. The thoracic aorta is somewhat tortuous. Heart is not enlarged. No new infiltrate. IMPRESSION: No pneumothorax seen. MTDD
--- NOTE | 2020-01-01 08:15 | REP ---
CHEST X-RAY CLINICAL: Follow-up pneumothorax. TECHNIQUE: PA and lateral. COMPARISON: 12/21/2019. FINDINGS: Mediastinum and cardiac silhouette are normal. Lung greene are clear. No focal consolidation, effusion, or pneumothorax. Skeletal structures are intact. IMPRESSION: No acute cardiopulmonary process. No obvious residual pneumothorax. MTDD
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
== END 2019-12-22 18:08 | disposition home health service (06) | DRG 135 ==
LOC: M ED 14:51 → EDBD 14:51 → M ED INP 18:07 → ENRESERV 19:16 → M MS5PR 21:40 → OBSVTOIN 12-18 07:35 → M PCU 12-18 12:58
PROVIDERS: ADMIT Surgery; ATTEND Surgery
PROC: 0W9930Z Drainage of Right Pleural Cavity with Drainage Device, Percutaneous Approach (ICD-10-PCS; principal; 2019-12-18)
DX: S27.0XXA Traumatic pneumothorax, initial encounter (principal); S32.019A Unspecified fracture of first lumbar vertebra, initial encounter for closed fracture; S22.22XA Fracture of body of sternum, initial encounter for closed fracture; S32.029A Unspecified fracture of second lumbar vertebra, initial encounter for closed fracture; S32.039A Unspecified fracture of third lumbar vertebra, initial encounter for closed fracture; E11.9 Type 2 diabetes mellitus without complications; I44.7 Left bundle-branch block, unspecified; K21.9 Gastro-esophageal reflux disease without esophagitis; E66.9 Obesity, unspecified; Z68.38 Body mass index [BMI] 38.0-38.9, adult; F17.200 Nicotine dependence, unspecified, uncomplicated; V49.69XA Unspecified car occupant injured in collision with other motor vehicles in traffic accident, initial encounter

== ENCOUNTER → 2020-06-18 | Outpatient (CLI) | payer MEDICARE ==
[~2020-06-18] MED LIST changes: +CENT1TAB PO; +DOXY-259 PO; +HYDR-3715 PO; +LOPE2TAB12 PO; +OMEP10CASR PO; +OMEP1CAP73 PO; +VITA500T41 PO
[2020-06-18 10:32] LABS: HEMOGLOBIN 15.2 g/dl (12.0-15.5); MEAN CORPUSCULAR HEMOGLOBIN 28.7 pg (27.0-33.0); MEAN CORPUSCULAR HGB CONC 32.3 g/dl (32.0-36.5); MEAN CORPUSCULAR VOLUME 88.8 fl (80.0-96.0); PLATELET COUNT, AUTOMATED 235 10^3/uL (150-450); RED BLOOD COUNT 5.29 10^6/uL (4.00-5.40); WHITE BLOOD COUNT 9.1 10^3/uL (4.0-10.0)
[2020-06-18 11:00] LABS: HEMOGLOBIN A1c 8.9 %
[2020-06-18 11:11] LABS: ALBUMIN 3.3 GM/DL (3.2-5.2); ALT/SGPT 22 U/L (12-78); BILIRUBIN,TOTAL 0.5 MG/DL (0.2-1.0); BLOOD UREA NITROGEN 15 MG/DL (7-18); CALCIUM LEVEL 9.1 MG/DL (8.8-10.2); CARBON DIOXIDE LEVEL 31 MEQ/L (21-32); CHLORIDE LEVEL 101 MEQ/L (98-107); CHOLESTEROL LEVEL 190 MG/DL (<200); CREATININE FOR GFR 0.75 MG/DL (0.55-1.30); GLOMERULAR FILTRATION RATE > 60.0 (>39); GLUCOSE, FASTING 209 MG/DL (70-100); HDL CHOLESTEROL 40 MG/DL (>40); LDL CHOLESTEROL 100 MG/DL (<100); NON-HDL-C 150 MG/DL; SODIUM LEVEL 137 MEQ/L (136-145); TOTAL 25(OH) VITAMIN D 17.2 NG/ML (30.0-100.0); TOTAL PROTEIN 6.2 GM/DL (6.4-8.2); TRIGLYCERIDES LEVEL 248 MG/DL (<150)
== END ==
LOC: M LAB 08:53
PROVIDERS: ATTEND Family Medicine
DX: I10 Essential (primary) hypertension (principal); D64.9 Anemia, unspecified; Z79.899 Other long term (current) drug therapy

== ENCOUNTER → 2020-06-22 | Outpatient (REF) | payer MEDICARE | LOC: M WUC 12:10 | PROVIDERS: ATTEND Physician Assistant | DX: N30.00 Acute cystitis without hematuria (principal) | CPT/HCPCS: 87086; G0463 ==

== ENCOUNTER → 2020-08-25 | Outpatient (REF) | payer MEDICARE ==
[2020-08-25 13:37] LABS: APPEARANCE, URINE CLOUDY (CLEAR); BACTERIA, URINE AUTO NEGATIVE (NEGATIVE); BILIRUBIN, URINE AUTO NEGATIVE (NEGATIVE); BLOOD, URINE BLOOD NEGATIVE (NEGATIVE); CALCIUM OXALATE CRYSTALS SMALL; COLOR, URINE YELLOW (YELLOW); GLUCOSE, URINE (UA) AUTO 2+ mg/dL (NEGATIVE); KETONE, URINE AUTO NEGATIVE (NEGATIVE); LEUKOCYTE ESTERASE, URINE AUTO 3+ (NEGATIVE); MUCUS, URINE SMALL (NEGATIVE); NITRITE, URINE AUTO NEGATIVE (NEGATIVE); PROTEIN, URINE AUTO 2+ mg/dL (NEGATIVE); RBC, URINE AUTO 15 /HPF (0-3); SPECIFIC GRAVITY URINE AUTO 1.021 (1.002-1.035); SQUAMOUS EPITHELIAL CELL UR AU 5 /HPF (0-6); UROBILINOGEN, URINE AUTO 0.2 mg/dL (0.0-2.0); WBC, URINE AUTO TNTC /HPF (0-3)
== END ==
LOC: M SMT 12:44
PROVIDERS: ATTEND Nurse Practitioner Women's Health
DX: R30.0 Dysuria (principal)

== ENCOUNTER → 2020-09-03 | Outpatient (REF) | payer MEDICARE | LOC: M WUC 20:06 | PROVIDERS: ATTEND Nurse Practitioner Family | DX: R30.0 Dysuria (principal) ==

== ENCOUNTER → 2020-09-16 | Outpatient (REF) | payer MEDICARE ==
[~2020-09-16] MED LIST changes: -DOXY100C37 PO; +DOXY1CAP62 PO
[2020-09-16 14:07] LABS: APPEARANCE, URINE CLOUDY (CLEAR); BACTERIA, URINE AUTO NEGATIVE (NEGATIVE); BILIRUBIN, URINE AUTO NEGATIVE (NEGATIVE); BLOOD, URINE BLOOD 1+ (NEGATIVE); COLOR, URINE YELLOW (YELLOW); GLUCOSE, URINE (UA) AUTO 3+ mg/dL (NEGATIVE); KETONE, URINE AUTO NEGATIVE (NEGATIVE); LEUKOCYTE ESTERASE, URINE AUTO 3+ (NEGATIVE); MUCUS, URINE SMALL (NEGATIVE); NITRITE, URINE AUTO NEGATIVE (NEGATIVE); PROTEIN, URINE AUTO 1+ mg/dL (NEGATIVE); RBC, URINE AUTO 14 /HPF (0-3); SPECIFIC GRAVITY URINE AUTO 1.013 (1.002-1.035); SQUAMOUS EPITHELIAL CELL UR AU 0 /HPF (0-6); UROBILINOGEN, URINE AUTO 0.2 mg/dL (0.0-2.0); WBC, URINE AUTO TNTC /HPF (0-3)
== END ==
LOC: M SMT 13:03
PROVIDERS: ATTEND Nurse Practitioner Women's Health
DX: R30.0 Dysuria (principal)